=== PATIENT | male | born 1990 | race African-American/Black ===

== ENCOUNTER 2017-07-21 19:10 | Emergency (ER) | payer OTHER ==
[~2017-07-21] VITALS: Ht 165.1 cm; Wt 68.0 kg
--- NOTE | 2017-07-21 19:14 | NUR ---
PHAN 80/ [employer] FROM HOME FOR COMBATIVE BEHAVIOR, PER RA GAVE 5 VERSED PER [employer] PT ADMITS TO [place] USE , NAD NOTED, VSS, RESP EVEN AND UNLABORED. WAITING FOR MD GONZALEZ.
[2017-07-21] MEDS ORDERED: OLANZAPINE 10 MG VIAL IM ONE ×2 (20:00→20:17)
[2017-07-21 20:20] LABS: BASOPHILS # (AUTO) 0.1 /CMM (0.0-0.2); EOSINOPHILS # (AUTO) 0.1 /CMM (0.0-0.7); EOSINOPHILS % (AUTO) 2.4 % (0.0-6.0); HEMATOCRIT 42 % (39-51); HEMOGLOBIN 13.9 g/dL (13.5-17.5); LYMPHOCYTES # (AUTO) 1.3 /CMM (0.8-4.8); LYMPHOCYTES % (AUTO) 22.9 % (20.0-44.0); MEAN CORPUSCULAR HEMOGLOBIN 30 PG (26.0-33.0); MEAN CORPUSCULAR HGB CONC 33 g/dl (31.0-36.0); MEAN CORPUSCULAR VOLUME 92 fL (80-96); MONOCYTES # (AUTO) 0.4 /CMM (0.1-1.30); MONOCYTES % (AUTO) 6.7 % (2.0-12.0); NEUTROPHILS # (AUTO) 3.9 /CMM (1.8-8.9); PLATELET COUNT (AUTO) 183 /CMM (150-450); RDW COEFFICIENT OF VARIATION 13.6 (11.5-15.0); RED BLOOD CELL COUNT(AUTO) 4.58 MIL/uL (4.5-6.0); WHITE BLOOD COUNT (AUTO) 5.8 K/uL (4.3-11.0)
[2017-07-21 20:36] LABS: ALBUMIN 3.3 g/dL (3.4-5.0); BILIRUBIN,TOTAL 0.2 mg/dL (0.2-1.0); CALCIUM, SERUM 7.9 mg/dL (8.5-10.1); CREATININE 0.8 mg/dL (0.6-1.3); POTASSIUM 3.2 mmol/L (3.5-5.1); SALICYLATE 6.2 mg/dL (2.8-20.0); TOTAL PROTEIN, SERUM 5.9 g/dL (6.4-8.2)
--- NOTE | 2017-07-21 20:49 | NUR ---
URINE SENT TO LAB
[2017-07-21 20:51] LABS: APPEARANCE,URINE Clear (CLEAR); BILIRUBIN,URINE Negative (NEGATIVE); BLOOD, URINE Large Ery/uL (NEGATIVE); COLOR,URINE Yellow (YELLOW); KETONES,URINE Trace (NEGATIVE); LEUKOCYTE ESTERASE ,URINE Negative (NEGATIVE); NITRITE, URINE Negative (NEGATIVE); PROTEIN,URINE 30 mg/dl (NEGATIVE); UGLUCOSE Negative (NEGATIVE)
[2017-07-21 21:03] LABS: BACTERIA,URINE Moderate /HPF (None Seen); RBC,URINE TOO NUMEROUS TO COUN /HPF (0-2); SQUAMOUS EPITHELIAL CELL,UR Few /HPF (None Seen)
--- NOTE | 2017-07-21 23:22 | NUR ---
Patient is resting comfortably in bed with eyes closed. Easily aroused. VSS
--- NOTE | 2017-07-21 23:22 | NUR ---
MOTHER AT BEDSIDE
--- NOTE | 2017-07-22 07:00 | NUR ---
PT AOX3. PT STATES NO HI/SI. ALSO STATES HE DOEST NOT WANT TO SEE AN EVAULATOR. DR. CASTELLANO AT BEDSIDE. MOTHER AT BEDSIDE WELL.
[2017-07-22 09:16] VITALS: BP 118/70
--- NOTE | 2017-07-22 09:17 | NUR ---
Patient discharged to home in stable condition. Written and verbal after care instructions given. Patient verbalizes understanding of instruction.
== END 2017-07-22 09:17 | disposition home or self-care (01) ==
LOC: ER 19:12
DX: S00.81XA Abrasion of other part of head, initial encounter (principal); R45.851 Suicidal ideations; R46.89 Other symptoms and signs involving appearance and behavior; J45.909 Unspecified asthma, uncomplicated; R82.79 Other abnormal findings on microbiological examination of urine; R51 Headache; W22.8XXA Striking against or struck by other objects, initial encounter; Y93.89 Activity, other specified; Y92.89 Other specified places as the place of occurrence of the external cause; Y99.8 Other external cause status
CPT/HCPCS: 36415; 51701; 70450; 80048; 80076; 80305; 80329; 81001; 85025; 87086; 96372; 99285; A4606; G0480 ×2; J3490; Z7610; 81000-TC

== ENCOUNTER 2017-07-23 20:59 | Emergency (ER) | payer OTHER ==
[~2017-07-23] VITALS: Ht 177.8 cm; Wt 79.4 kg
[2017-07-23 20:59] VITALS: BP 132/71
--- NOTE | 2017-07-23 22:08 | NUR ---
PT CALLED TO ROOM, NO RESPONSE.
--- NOTE | 2017-07-23 22:12 | NUR ---
pt called to triage, no response.
--- NOTE | 2017-07-23 22:18 | NUR ---
pt called to room, no resposne.
== END 2017-07-24 02:23 | disposition left against medical advice (07) ==
LOC: ER 21:06
DX: Z53.21 Procedure and treatment not carried out due to patient leaving prior to being seen by health care provider (principal)
CPT/HCPCS: A4606; Z7610